=== PATIENT | female | born 1960 | race Caucasian/White ===

== ENCOUNTER → 2020-07-18 15:38 | Outpatient (BNVA) | payer OTHER, SELFPAY | PROVIDERS: PCP Internal Medicine; Visit Provider Student in an Organized Health Care Education/Training Program | DX: M17.0 Bilateral primary osteoarthritis of knee (principal) | CPT/HCPCS: 99202 ==

== ENCOUNTER 2020-08-17 09:52 | Emergency (ER) | payer OTHER, SELFPAY ==
[2020-08-17 10:04] VITALS: BP 122/92; PULSE 86; RESP 18; TEMP 36.5; O2SAT 98; BMI 31.8
--- NOTE | 2020-08-17 10:36 | ED_ITS ---
HPI - Dental/Oral General Chief complaint: Dental/Oral Stated complaint: dental pain Time Seen by Provider: 08/17/20 10:36 Source: patient Mode of arrival: ambulatory Limitations: no limitations History of Present Illness HPI Narrative: 59-year-old female with a past medical history of poor dentition/multiple dental caries/multiple dental fractures that are chronic, hypertension, asthma, vitamin-D deficiency and osteoarthritis presenting to the ED with complaints of right lower dental pain for the past 4 days worse today with mild lower facial swelling. Reports that she called her dentist to make an appointment she does not have an appointment till 2 weeks. Reports that the last time she went to the dentist she was prescribed some type of penicillin and was told that she needed a root canal. Patient denies any other symptoms complaints or concerns at this time. MD Complaint: tooth pain Onset (ago): day(s) (4 days worse today) Duration: worsening Severity: moderate Relieving factors: nothing Exacerbating factors: chewing Context: history of dental caries (/Dental fractures) and poor dental care Associated symptoms: ear pain Treatment prior to arrival: other (Patient has taken multiple [id number] medications with no symptomatic relief.) Related Data Home Medications Medication Instructions Recorded Confirmed albuterol sulfate 90 mcg/actuation 2 puff INHALATION Q6H PRN 07/18/20 aerosol inhaler amlodipine 10 mg tablet 10 mg PO DAILY 07/18/20 cholecalciferol (vitamin D3) 1,250 1,250 mcg PO QWEEK 07/18/20 mcg (50,000 unit) tablet clonazepam 1 mg tablet 1 mg PO BEDTIME 07/18/20 lisinopril 20 1 tab PO DAILY 07/18/20 mg-hydrochlorothiazide 12.5 mg tablet sertraline 100 mg tablet 100 mg PO DAILY 07/18/20 tramadol 50 mg tablet 50 mg PO Q8H PRN 07/18/20 ziprasidone HCl 20 mg capsule 20 mg PO BID 07/18/20 zolpidem 10 mg tablet 10 mg PO BEDTIME PRN 07/18/20 Previous Rx's Medication Instructions Recorded acetaminophen [Tylenol Extra 1,000 mg PO QID PRN #14 tab 08/17/20 Strength] oxycodone 5 mg PO BID PRN #10 tab 08/17/20 penicillin V potassium 500 mg PO Q12H 10 Days #20 tab 08/17/20 Allergies Allergy/AdvReac Type Severity Reaction Status Date / Time aspirin [Aspirin] Allergy Intermediate THORAT Verified 07/18/20 15:43 SWELLING, RASH ibuprofen [From Motrin] Allergy Intermediate THROAT Verified 07/18/20 15:43 SWELLING, RASH Review of Systems Review of Systems: Constitutional : No Fever, No Chills, No changes in PO intake, No difficulty speaking, no recent dental procedure, no heat or cold intolerance while eating, no recent face trauma, ENT/Mouth : + Dental pain, + Jaw pain right lower, + Right lower facial swelling, No Sore throat, No throat swelling, No swallowing difficulty, no change in voice, no drooling, no trismus, no bleeding, no lacerations, no tongue swelling, gum swelling, Eyes: No Eye Pain, No periorbital Swelling Cardiovascular : No Chest Pain, No SOB Respiratory : No Cough, No Sputum, No Wheezing, No Smoke Exposure, No Dyspnea Gastrointestinal : No Nausea, No Vomiting, No Diarrhea Genitourinary : No Dysuria Musculoskeletal : No Myalgias Skin : No rash, no facial swelling or redness, Neuro : No Weakness, No Numbness, No Headache Yes all other systems are reviewed and are negative [facility] Past Medical History Attestation statement: The following information was validated with the patient. Medical History Asthma HTN (hypertension) Osteoarthritis Vitamin D deficiency Surgical History H/O discectomy H/O hernia repair LAP-BAND surgery status Family History Family History Mother HTN (hypertension) CVD (cardiovascular disease) Father CVD (cardiovascular disease) Sister CVD (cardiovascular disease) Social History Social History Alcohol intake: never Smoking Status: Current every day smoker Tobacco Type: Cigarette Cigarettes Per Day: 10 Years Smoked: 20 Smoked in Last 30 Days: No Use of substances other than those prescribed or required for medical reasons: No Advance Directives: No Advance Directives Information Provided: No Physical Exam Vital Signs: Vital Signs: Last Vital Signs Temp 97.7 F 08/17/20 10:04 Pulse 86 08/17/20 10:04 Resp 18 08/17/20 10:04 BP 122/92 H 08/17/20 10:04 Pulse Ox 98 08/17/20 10:04 Body Mass Index 31.8 vital signs have been reviewed as normal and appeared to be correct. Blood pressure normal. Heart rate normal. Respiration rate normal. Temperature normal. Oxygen saturation normal. Appearance: Alert. Oriented X3. No acute distress. Head: Normal external exam. Normocephalic. Atraumatic. Eyes: PERRLA. EOMI. Conjunctiva and sclera normal. Eyelids normal. ENT: EAC normal. TM's Normal. Pharynx normal. Uvula midline. Moist mucous membranes. No trismus noted. No drooling noted. No muffled voice noted. Dentition: Patient with poor dentition throughout with multiple old fractured teeth with multiple dental caries. Gingival within normal limits. No fluctuance. Not consistent with peritonsillar abscess. Not consistent with dental abscess. Not consistent with for pharyngeal abscess. No salivary duct obstruction noted. Neck: Normal inspection. Neck supple. FROM. No adenopathy. Thyroid Normal. No meningeal signs. No neck mass noted. Trachea midline. CVS: Normal heart rate and rhythm. Heart sound normal. No murmurs noted. Pulses normal throughout. Respiratory: No respiratory distress. Painless inspiration. Breath sounds normal. No wheezes/rales/rhonchi noted. Chest nontender. No accessory muscle usage noted or decreased air movement noted. Back: Full range of motion noted. Skin: Skin warm and dry. Normal skin color. Normal skin turgor. No rashes/lesions/lacerations noted. Extremities:Extremities exhibit normal range of motion. Extremities nontender. Neuro: Oriented X 3. No motor deficit. No sensory deficit. Reflexes normal. Course Course Course Narrative: 59-year-old female with a past medical history of poor dentition with chronic dental caries/dental fractures who needs a root canal to multiple teeth presenting to the ED with complaints of worsening pain for the past 4 days with right lower facial swelling has an appointment with the dentist in 2 weeks. Denies any other symptoms complaints or concerns. On exam patient has multiple dental caries/poor dentition/old chronic fractures. No fluctuance. Not consistent with peritonsillar abscess/pharyngeal abscess/dental abscess. Patient does not have any trismus or drooling. Tolerating secretions well. Wi ll DC home with antibiotics and symptomatic treatment alone instructions to return if any new or worsening symptoms to follow up with her oral surgeon as scheduled. Patient understands agrees with this plan. [facility] - Dental/Oral Medical Records Attestation: I reviewed the patient's medical records. Discharge Plan Discharge Clinical Impression: Toothache, Dental caries Patient Disposition: Home, Self-Care Instructions: Toothache (ED) Prescriptions: New penicillin V potassium 500 mg tablet 500 mg PO Q12H 10 Days Qty: 20 RF: 0 oxycodone 5 mg tablet 5 mg PO BID PRN (Reason: pain) Qty: 10 RF: 0 acetaminophen [Tylenol Extra Strength] 500 mg tablet 1,000 mg PO QID PRN (Reason: fever or pain) Qty: 14 RF: 0 No Action cholecalciferol (vitamin D3) 1,250 mcg (50,000 unit) tablet 1,250 mcg PO QWEEK RF: 0 albuterol sulfate 90 mcg/actuation HFA aerosol inhaler 2 puff inhalation Q6H PRNRF: 0 tramadol 50 mg tablet 50 mg PO Q8H PRNRF: 0 lisinopril-hydrochlorothiazide [Zestoretic] 20-12.5 mg tablet 1 tab PO DAILY RF: 0 amlodipine 10 mg tablet 10 mg PO DAILY RF: 0 zolpidem 10 mg tablet 10 mg PO BEDTIME PRNRF: 0 ziprasidone HCl [Geodon] 20 mg capsule 20 mg PO BID RF: 0 sertraline 100 mg tablet 100 mg PO DAILY RF: 0 clonazepam 1 mg tablet 1 mg PO BEDTIME RF: 0 Referrals: Elba Luna MD [Primary Care Provider] - 2 days Print Language: Lithuanian
== END 2020-08-17 11:02 | disposition home or self-care (01) ==
PROVIDERS: Emergency Provider Emergency Medicine; PCP Internal Medicine
DX: K02.9 Dental caries, unspecified (principal); I10 Essential (primary) hypertension; R10.31 Right lower quadrant pain; F17.210 Nicotine dependence, cigarettes, uncomplicated; Z71.6 Tobacco abuse counseling; Z79.899 Other long term (current) drug therapy
CPT/HCPCS: 99283

== ENCOUNTER 2020-10-15 11:13 | Outpatient (REF) | payer OTHER, SELFPAY ==
--- NOTE | ~2020-10-15 | XR_ITS ---
EXAMINATION: BILATERAL KNEE X-RAY AND RIGHT ELBOW X-RAY CLINICAL INFORMATION: Pain COMPARISON: Previous x-rays March and April 2018 TECHNIQUE: 4 views of each knee and 3 views of the elbow FINDINGS: Bilateral knees: Bone alignment is normal. No fracture or dislocation is seen. The joint spaces are normal. There is no joint effusion. Right elbow: Bone alignment is normal. No fracture or dislocation is seen. There is a small osteophyte at the coronoid process. Joint spaces are otherwise normal. There is no joint effusion. XR/XR elbow RT min 3V IMPRESSION: Bilateral knees: Unremarkable exam Right elbow: Small coronoid process osteophyte otherwise unremarkable exam.
--- NOTE | ~2020-10-15 | XR_ITS ---
EXAMINATION: BILATERAL KNEE X-RAY AND RIGHT ELBOW X-RAY CLINICAL INFORMATION: Pain COMPARISON: Previous x-rays March and April 2018 TECHNIQUE: 4 views of each knee and 3 views of the elbow FINDINGS: Bilateral knees: Bone alignment is normal. No fracture or dislocation is seen. The joint spaces are normal. There is no joint effusion. Right elbow: Bone alignment is normal. No fracture or dislocation is seen. There is a small osteophyte at the coronoid process. Joint spaces are otherwise normal. There is no joint effusion. XR/XR knee LT 4V IMPRESSION: Bilateral knees: Unremarkable exam Right elbow: Small coronoid process osteophyte otherwise unremarkable exam.
--- NOTE | ~2020-10-15 | XR_ITS ---
EXAMINATION: BILATERAL KNEE X-RAY AND RIGHT ELBOW X-RAY CLINICAL INFORMATION: Pain COMPARISON: Previous x-rays March and April 2018 TECHNIQUE: 4 views of each knee and 3 views of the elbow FINDINGS: Bilateral knees: Bone alignment is normal. No fracture or dislocation is seen. The joint spaces are normal. There is no joint effusion. Right elbow: Bone alignment is normal. No fracture or dislocation is seen. There is a small osteophyte at the coronoid process. Joint spaces are otherwise normal. There is no joint effusion. XR/XR knee RT 4V IMPRESSION: Bilateral knees: Unremarkable exam Right elbow: Small coronoid process osteophyte otherwise unremarkable exam.
[2020-10-15 11:56] LABS: MANUAL DIFF FLAG NO
[2020-10-15 11:59] LABS: Basophils Absolute Auto 0.1 X10*3/uL (0.0-0.2); Basophils Percent Auto 0.8 % (0-2); Eosinophils Absolute Auto 0.3 X10*3/uL (0.0-0.4); Eosinophils Percent Auto 4.4 % (0-4); Hematocrit 39.6 % (37-47); Imm Gran Abs Auto 0.01 X10*3/uL (0.00-0.03); Imm Gran Pct Auto 0.2 % (0.0-0.4); Lymphocytes Absolute Auto 2.2 X10*3/uL (1.2-4.9); Lymphocytes Percent Auto 34.2 % (20-40); Mean Corpuscular HGB Conc 32.8 g/dl (31.0-35.0); Mean Corpuscular Hemoglobin 31.9 pg (27.0-33.0); Mean Corpuscular Volume 97.3 fL (80-98); Mean Platelet Volume 10.6 fL (9.4-12.3); Monocytes Absolute Auto 0.4 X10*3/uL (0.1-1.2); Monocytes Percent Auto 6.7 % (2-11); Neutrophils Absolute Auto 3.5 X10*3/uL (2.0-8.3); Neutrophils Percent Auto 53.7 % (45-73); Platelet Count 238 X10*3/uL (160-400); Red Blood Count 4.07 X10*6/uL (4.20-5.50); Red Cell Distribution Width 12.7 % (11.0-16.0); White Blood Count 6.5 X10*3/uL (4.8-10.8)
[2020-10-15 12:22] LABS: Alanine Aminotransferase 32 U/L (0-31); Albumin Level 4.6 g/dL (3.5-5.0); Alkaline Phosphatase 73 U/L (39-117); Anion Gap 12 (12-20); Aspartate Amino Transferase 23 U/L (5-31); Bilirubin Total 0.4 mg/dL (0.0-1.0); Blood Urea Nitrogen 15 mg/dL (9-16); C Reactive Protein 0.34 mg/dL (< or = 0.50); Calcium 9.6 mg/dL (8.4-10.2); Carbon Dioxide 28 mmol/L (22-29); Chloride 103 mmol/L (96-108); Estimated Glomerular Filt Rate > 60; Glucose Random 87 mg/dL (60-115); Rheumatoid Factor < 15.0 IU/mL (<15.0); Sodium 139 mmol/L (135-145); Total Protein 7.3 g/dL (6.5-8.0)
[2020-10-15 12:54] LABS: Erythrocyte Sedimentation Rate 18 MM/HR (0-20)
[2020-10-16 05:16] LABS: Lyme Abs Screen <0.90 index
[2020-10-16 17:26] LABS: Cyclic Citrullinated Peptide <16 UNITS
== END 2020-10-15 11:14 | disposition home or self-care (01) ==
LOC: HO.LAB 11:13
PROVIDERS: Absent Provider Student in an Organized Health Care Education/Training Program; PCP Internal Medicine; Visit Provider Nurse Practitioner Family
DX: M25.521 Pain in right elbow (principal); M17.0 Bilateral primary osteoarthritis of knee
CPT/HCPCS: 36415; 73080; 73564; 80053; 85025; 85652; 86140; 86200; 86431; 86617; 86618

== ENCOUNTER → 2020-11-27 10:05 | Outpatient (BNVA) | payer OTHER, SELFPAY | PROVIDERS: PCP Internal Medicine; Visit Provider Student in an Organized Health Care Education/Training Program | DX: M17.0 Bilateral primary osteoarthritis of knee (principal); M19.021 Primary osteoarthritis, right elbow | CPT/HCPCS: 99212 ==

== ENCOUNTER → 2020-12-11 11:14 | Outpatient (BNVA) | payer OTHER, SELFPAY | PROVIDERS: Visit Provider Physician Assistant | DX: M77.11 Lateral epicondylitis, right elbow (principal); Z88.6 Allergy status to analgesic agent | CPT/HCPCS: 20551; 99202; J1040 ==

== ENCOUNTER 2021-01-04 16:26 | Emergency (ER) | payer OTHER, SELFPAY ==
--- NOTE | ~2021-01-04 | XR_ITS ---
EXAMINATION: XR LUMBOSACRAL SPINE CLINICAL INFORMATION: Pain following fall. Back surgery. COMPARISON: Lumbar spine radiographs dated 08/28/2012. TECHNIQUE: Three views of the lumbosacral spine. FINDINGS: Intervertebral disc hardware redemonstrated at L4-L5 without evidence of hardware complication. No acute fracture or subluxation. No loss of vertebral body height. Mild multilevel loss of intervertebral disc height with tiny endplate osteophytes, increased when compared to the prior examination. No osseous erosion. Surgical clips and surgical coils. XR/XR lumbar spine 2-3V IMPRESSION: Intervertebral disc hardware at L4-L5 without evidence of hardware application. No acute osseous abnormality. Mild multilevel degenerative disc disease, new/increased when compared to the prior examination.
[2021-01-04 16:30] VITALS: BP 146/94; PULSE 78; RESP 18; TEMP 37; O2SAT 100; BMI 30.4
--- NOTE | 2021-01-04 19:36 | ED.BACK ---
HPI - Back Pain/Injury General Chief Complaint: Back Pain/Injury Stated Complaint: Back pain Time Seen by Provider: 01/04/21 19:18 Source: patient Mode of arrival: ambulatory Limitations: no limitations History of Present Illness HPI Narrative: 60 y/o female with history of chronic low back pain s/p lumbar surgery 10 years ago, on chronic Tramadol who presnts to the ER with acute on chronic pain after she fell down 4 steps on her buttocks 1 week ago. She reports the pain is in her lower back and radiates down her left leg. It is making it difficult to walk and sleep. No incontinence or saddle paresthesias. She has been taking her prescribed Tramadol, but she reports because she is on this chronically is does not do anything for when she has acute worsening of pain. She is going to [place] tomorrow and is worried she wont be able to go because her pain is not well controlled. MD elicited complaint: back pain, back injury and fall Pertinent past history: prior back pain and recent trauma Onset (ago): day(s) (7) Timing: constant and progressively worsening Severity: severe Similar Symptoms Previously: Yes Quality: aching, spasming and throbbing Location: lumbar spine Radiation: left upper leg Exacerbating factors: movement, walking and coughing/sneezing Relieving factors: immobilization Context: fall Associated symptoms: difficulty walking Treatments prior to arrival: cold therapy, acetaminophen, other medications and prescription analgesics Work related injury: No Related Data Home Medications Medication Instructions Recorded Confirmed albuterol sulfate 90 mcg/actuation 2 puff INHALATION Q6H PRN 07/18/20 aerosol inhaler amlodipine 10 mg tablet 10 mg PO DAILY 07/18/20 cholecalciferol (vitamin D3) 1,250 1,250 mcg PO QWEEK 07/18/20 mcg (50,000 unit) tablet clonazepam 1 mg tablet 1 mg PO BEDTIME 07/18/20 lisinopril 20 1 tab PO DAILY 07/18/20 mg-hydrochlorothiazide 12.5 mg tablet (Zestoretic) sertraline 100 mg tablet 100 mg PO DAILY 07/18/20 ziprasidone HCl 20 mg capsule 20 mg PO BID 07/18/20 (Geodon) zolpidem 10 mg tablet 10 mg PO BEDTIME PRN 07/18/20 Previous Rx's Medication Instructions Recorded acetaminophen 500 mg tablet 1,000 mg PO QID PRN #14 tab 08/17/20 (Tylenol Extra Strength) tramadol 50 mg tablet 50 mg PO BID PRN #60 tab 11/27/20 cyclobenzaprine 10 mg tablet 10 mg PO TID PRN #7 tab 01/04/21 lidocaine 5 % topical patch 1 patch TOPICAL DAILY #15 ea 01/04/21 (Lidoderm) oxycodone-acetaminophen 5 mg-325 1 tab PO Q6H PRN #7 tab 01/04/21 mg tablet (Percocet) prednisone 20 mg tablet 40 mg PO DAILY #10 tab 01/04/21 Allergies Allergy/AdvReac Type Severity Reaction Status Date / Time aspirin [Aspirin] Allergy Severe THORAT Verified 01/04/21 16:35 SWELLING, RASH ibuprofen [From Motrin] Allergy Severe THROAT Verified 01/04/21 16:35 SWELLING, RASH naproxen Allergy Severe Anaphylaxis Verified 01/04/21 16:35 PMFSH Past Medical History Medical History Asthma HTN (hypertension) Osteoarthritis Vitamin D deficiency Surgical History H/O discectomy H/O hernia repair LAP-BAND surgery status Family History Family History Mother HTN (hypertension) CVD (cardiovascular disease) Father CVD (cardiovascular disease) Sister CVD (cardiovascular disease) Social History Social History (Updated 12/11/20 @ 11:20 by Juan Cerda) Alcohol intake: never Cigarettes Per Day: 10 Years Smoked: 20 Advance Directives: No Advance Directives Information Provided: No Patient : No Current occupational status: disabled Current occupation: rt handed Physical Exam Vital Signs: Vital Signs: Last Vital Signs Temp 98.6 F 01/04/21 16:30 Pulse 78 01/04/21 16:30 Resp 18 01/04/21 16:30 BP 146/94 H 01/04/21 16:30 Pulse Ox 100 01/04/21 16:30 Body Mass Index 30.4 Appearance: Alert. Oriented X3. No acute distress. Eyes: Pupils equal, round and reactive to light. Neck: Normal inspection. CVS: Normal heart rate and rhythm. Pulses normal. Respiratory: No respiratory distress. Abdomen: Soft and nontender. +BS x4 Back: moderate tenderness of the lumbar spine and associated soft tissues. + SI joint tenderness on the left. Skin: Skin warm and dry. Normal skin color. Normal skin turgor. No rashes. Extremities: No lower extremity edema. Neuro: Oriented X 3. No motor deficit. No sensory deficit. Ambulates with slow but steady gait. Normal DTRs Course Course Course Narrative: 60 y/o female presenting with acute on chronic lower back pain s/p fall down stairs. XR is negative for acute fracture. We discussed how she needs to follow up with her PCP for opiate needs given she is chronically prescribed them. We agreed to give a trial of a few doses of Percocet for her acute pain as she will not be able to see her PCP tomorrow before she travels. She expressed understanding of outpatient follow up. She has no red flag symptoms of LBP. She is stable for discharge home. Critical Care Time Critical Care Time Critical Care Time: No Discharge Plan Discharge Clinical Impression: Lumbar radiculopathy Patient Disposition: Home, Self-Care Instructions: Low Back Strain (ED), Acute Low Back Pain (ED), Lower Back Exercises (ED) Additional Instructions: No bending, lifting or twisting. Use ice several times per day for 20 minutes at a time for the next 48 hours and then change to heat. Take medications as prescribed to help with pain and discomfort. Follow up with your Primary Care Doctor this week. If your pain worsens, if you develop new numbness, tingling, weakness, loss of function or incontinence call 911 or come back to the ER right away for evaluation. Prescriptions: New oxycodone-acetaminophen [Percocet] 5-325 mg tablet 1 tab PO Q6H PRN (Reason: pain) Qty: 7 RF: 0 prednisone 20 mg tablet 40 mg PO DAILY Qty: 10 RF: 0 cyclobenzaprine 10 mg tablet 10 mg PO TID PRN (Reason: muscle spasm) Qty: 7 RF: 0 lidocaine [Lidoderm] 5 % adhesive patch,medicated 1 patch topical DAILY Qty: 15 RF: 0 No Action acetaminophen [Tylenol Extra Strength] 500 mg tablet 1,000 mg PO QID PRN (Reason: fever or pain) Qty: 14 RF: 0 cholecalciferol (vitamin D3) 1,250 mcg (50,000 unit) tablet 1,250 mcg PO QWEEK RF: 0 albuterol sulfate 90 mcg/actuation HFA aerosol inhaler 2 puff inhalation Q6H PRNRF: 0 lisinopril-hydrochlorothiazide [Zestoretic] 20-12.5 mg tablet 1 tab PO DAILY RF: 0 amlodipine 10 mg tablet 10 mg PO DAILY RF: 0 zolpidem 10 mg tablet 10 mg PO BEDTIME PRNRF: 0 ziprasidone HCl [Geodon] 20 mg capsule 20 mg PO BID RF: 0 sertraline 100 mg tablet 100 mg PO DAILY RF: 0 clonazepam 1 mg tablet 1 mg PO BEDTIME RF: 0 tramadol 50 mg tablet 50 mg PO BID PRN (Reason: pain) Qty: 60 RF: 3 Referrals: Elba Luna MD [Primary Care Provider] - 2 days
== END 2021-01-04 20:21 | disposition home or self-care (01) ==
PROVIDERS: Emergency Provider Emergency Medicine; PCP Internal Medicine
DX: M54.16 Radiculopathy, lumbar region (principal); F17.210 Nicotine dependence, cigarettes, uncomplicated; Z71.6 Tobacco abuse counseling; Z79.899 Other long term (current) drug therapy
CPT/HCPCS: 72100; 99283

== ENCOUNTER 2021-03-14 11:26 | Emergency (ER) | payer OTHER, SELFPAY ==
[2021-03-14 11:39] VITALS: BP 128/52; PULSE 76; RESP 18; TEMP 36.8; O2SAT 98; BMI 30.4
--- NOTE | 2021-03-14 12:02 | ED_ITS ---
HPI - Extremity Problem General Chief complaint: Extremity Injury, Upper Stated complaint: elbow pain Time Seen by Provider: 03/14/21 12:01 Source: patient Mode of arrival: ambulatory Limitations: no limitations History of Present Illness HPI Narrative: 60 y/o female with history of arthritis, history of tendinitis in her right elbow, history of hypertension asthma, history of osteoarthritis of both of her knees who presents to the ER with 1 week of worsening right elbow pain. She denies any trauma or injury. She is right-hand dominant. She states back and september she had x-rays done that did not show any significant abnormalities and she was seen by a process design chemical engineer who performed joint injections for tendinitis. She had significant improvement with this treatment and has not had recurrence of pain until the last 1 week. She has been taking Tylenol and using BenGay without any improvement. Pain is worse with palpation and range of motion of the elbow. She is able to fully extend and flex the elbow. She has no redness of the elbow, no fever or chills. MD Complaint: joint paint Onset (ago): day(s) (1) Pain Consistency: constant Location: right and elbow Severity scale (1-10): 8 Quality: aching Radiation: none Relieving factors: medication Exacerbating factors: range of motion and palpation Associated symptoms: denies other symptoms Related Data Home Medications Medication Instructions Recorded Confirmed albuterol sulfate 90 mcg/actuation 2 puff INHALATION Q6H PRN 07/18/20 aerosol inhaler amlodipine 10 mg tablet 10 mg PO DAILY 07/18/20 cholecalciferol (vitamin D3) 1,250 1,250 mcg PO QWEEK 07/18/20 mcg (50,000 unit) tablet clonazepam 1 mg tablet 1 mg PO BEDTIME 07/18/20 lisinopril 20 1 tab PO DAILY 07/18/20 mg-hydrochlorothiazide 12.5 mg tablet (Zestoretic) sertraline 100 mg tablet 100 mg PO DAILY 07/18/20 ziprasidone HCl 20 mg capsule 20 mg PO BID 07/18/20 (Geodon) zolpidem 10 mg tablet 10 mg PO BEDTIME PRN 07/18/20 Previous Rx's Medication Instructions Recorded acetaminophen 500 mg tablet 1,000 mg PO QID PRN #14 tab 08/17/20 (Tylenol Extra Strength) tramadol 50 mg tablet 50 mg PO BID PRN #60 tab 11/27/20 cyclobenzaprine 10 mg tablet 10 mg PO TID PRN #7 tab 01/04/21 lidocaine 5 % topical patch 1 patch TOPICAL DAILY #15 ea 01/04/21 (Lidoderm) oxycodone-acetaminophen 5 mg-325 1 tab PO Q6H PRN #7 tab 01/04/21 mg tablet (Percocet) prednisone 20 mg tablet 40 mg PO DAILY #10 tab 01/04/21 oxycodone-acetaminophen 5 mg-325 1 tab PO Q8H PRN #6 tab 03/14/21 mg tablet (Percocet) prednisone 20 mg tablet 40 mg PO DAILY #10 tab 03/14/21 Allergies Allergy/AdvReac Type Severity Reaction Status Date / Time aspirin [Aspirin] Allergy Severe THORAT Verified 03/14/21 11:39 SWELLING, RASH ibuprofen [From Motrin] Allergy Severe THROAT Verified 03/14/21 11:39 SWELLING, RASH naproxen Allergy Severe Anaphylaxis Verified 03/14/21 11:39 Review of Systems Review of Systems: Constitutional: No Fever, No Chills CV: no chest pain Musculoskeletal: + joint pain, No Myalgias Skin: No Skin Lesions, No rash Neuro: No Weakness, No Numbness Heme/Lymph: No Bruising, No Lymphadenopathy PMFSH Past Medical History Medical History (Updated 03/14/21 @ 12:18 by PAKO Dean) Arthritis Asthma HTN (hypertension) Osteoarthritis Vitamin D deficiency Surgical History H/O discectomy H/O hernia repair LAP-BAND surgery status Family History Family History Mother HTN (hypertension) CVD (cardiovascular disease) Father CVD (cardiovascular disease) Sister CVD (cardiovascular disease) Social History Social History (Updated 12/11/20 @ 11:20 by Juan Cerda) Alcohol intake: never Cigarettes Per Day: 10 Years Smoked: 20 Advance Directives: No Advance Directives Information Provided: No Patient : No Current occupational status: disabled Current occupation: rt handed Physical Exam Vital Signs: Vital Signs: Last Vital Signs Temp 98.2 F 03/14/21 11:39 Pulse 76 10/23/21 11:39 Resp 18 03/14/21 11:39 BP 128/52 L 03/14/21 11:39 Pulse Ox 98 03/14/21 11:39 Body Mass Index 30.4 Appearance: Alert. Oriented X3. No acute distress. HEENT: normal inspection CVS: Normal heart rate and rhythm. Pulses normal. Respiratory: No respiratory distress. Skin: Skin warm and dry. Normal skin color. Normal skin turgor. No rashes. Extremities: Right arm normal to inspection, tenderness of the lateral epicondyle of the right elbow, normal passive and active range of motion, pain with flexion. No erythema of the elbow or warmth. Neurovascularly intact distally. Neuro: Oriented X 3. No motor deficit. No sensory deficit. Course Course Course Narrative: 60-year-old female presenting with recurrent right elbow pain, nontraumatic in nature. She has a history of tendinitis requiring joint injections that responded very well. This appears to be a similar clinical presentation. She has tenderness to the lateral epicondyle of her right elbow, no signs of infection. No need for repeat x-rays at this time given no trauma. She has an appointment with her process design chemical engineer next and is hopeful to get joint injections then. Will treat her conservatively for now with a short course of prednisone given her NSAID allergy and a few Percocet for severe pain. Will place in a sling for comfort for 2 days and then continue [id number] exercises. Supportive care discussed with the patient she is stable for [facility]. Discharge Plan Discharge Clinical Impression: Lateral epicondylitis, right elbow Patient Disposition: Home, Self-Care Instructions: Tennis Elbow (ED) Additional Instructions: Use the sling for rest of your elbow for the next 2 days. Taking medications as prescribed. Do not drive after taking the Percocet. It can make you drowsy. Continue to use ice several times a day. Continue to take Tylenol up to 1000 mg every 6 hours. Do not exceed 4000 mg in 1 day. Follow-up with your doctor as scheduled next for evaluation for possible joint injection. If you develop new or worsening symptoms call 911 or come back to the ER for further evaluation. Prescriptions: New prednisone 20 mg tablet 40 mg PO DAILY Qty: 10 RF: 0 oxycodone-acetaminophen [Percocet] 5-325 mg tablet 1 tab PO Q8H PRN (Reason: pain) Qty: 6 RF: 0 No Action acetaminophen [Tylenol Extra Strength] 500 mg tablet 1,000 mg PO QID PRN (Reason: fever or pain) Qty: 14 RF: 0 oxycodone-acetaminophen [Percocet] 5-325 mg tablet 1 tab PO Q6H PRN (Reason: pain) Qty: 7 RF: 0 prednisone 20 mg tablet 40 mg PO DAILY Qty: 10 RF: 0 cyclobenzaprine 10 mg tablet 10 mg PO TID PRN (Reason: muscle spasm) Qty: 7 RF: 0 lidocaine [Lidoderm] 5 % adhesive patch,medicated 1 patch topical DAILY Qty: 15 RF: 0 cholecalciferol (vitamin D3) 1,250 mcg (50,000 unit) tablet 1,250 mcg PO QWEEK RF: 0 albuterol sulfate 90 mcg/actuation HFA aerosol inhaler 2 puff inhalation Q6H PRNRF: 0 lisinopril-hydrochlorothiazide [Zestoretic] 20-12.5 mg tablet 1 tab PO DAILY RF: 0 amlodipine 10 mg tablet 10 mg PO DAILY RF: 0 zolpidem 10 mg tablet 10 mg PO BEDTIME PRNRF: 0 ziprasidone HCl [Geodon] 20 mg capsule 20 mg PO BID RF: 0 sertraline 100 mg tablet 100 mg PO DAILY RF: 0 clonazepam 1 mg tablet 1 mg PO BEDTIME RF: 0 tramadol 50 mg tablet 50 mg PO BID PRN (Reason: pain) Qty: 60 RF: 3
== END 2021-03-14 13:00 | disposition home or self-care (01) ==
PROVIDERS: Emergency Provider Emergency Medicine; PCP Internal Medicine
DX: M77.11 Lateral epicondylitis, right elbow (principal); M25.521 Pain in right elbow; F17.210 Nicotine dependence, cigarettes, uncomplicated; Z71.6 Tobacco abuse counseling; Z79.899 Other long term (current) drug therapy
CPT/HCPCS: 99283

== ENCOUNTER 2021-03-20 13:27 | Outpatient (REF) | payer OTHER, SELFPAY ==
--- NOTE | ~2021-03-20 | MM_ITS ---
EXAMINATION: MM DIAGNOSTIC DIGITAL BREAST TOMOSYNTHESIS, BILATERAL TARGETED RIGHT BREAST ULTRASOUND CLINICAL INFORMATION: Right breast pain for one month. The lifetime risk of breast cancer based on the Tyrer-Cuzick Model is 7%. COMPARISON: Mammography: 07/29/2017 and 07/11/2008. TECHNIQUE: Digital breast tomosynthesis is performed in both the craniocaudal and mediolateral oblique views along with computer-aided detection (CAD). Synthesized 2D images are generated from the tomosynthesis. FINDINGS: The breasts are almost entirely fatty (ACR BI-RADS breast composition Category a). There are no significant masses, abnormal calcifications, or other abnormalities. Targeted right breast ultrasound did not demonstrate any abnormal cystic or solid masses. No region of abnormal distal sound shadowing. Results are discussed with the patient at time of visit. MM/MM tomosynthesis diagnostic BI IMPRESSION: No mammographic or ultrasound evidence of malignancy. ASSESSMENT: BI-RADS 1: Negative. RECOMMENDATION: Routine annual mammography screening due in 12 months. Clinical follow-up. This patient's information was entered into a reminder system with a target due date for their next mammogram.
--- NOTE | ~2021-03-20 | US_ITS ---
EXAMINATION: US DIAGNOSTIC ULTRASOUND BREAST, RIGHT CLINICAL INFORMATION: Right breast pain. COMPARISON: Mammography of same day. TECHNIQUE: Ultrasound of the breast is performed with real-time kendall scale imaging and color Doppler. FINDINGS: Targeted right breast ultrasound did not demonstrate any abnormal cystic or solid masses. No region of abnormal distal sound shadowing. Results are discussed with the patient at time of visit. US/US breast RT limited IMPRESSION: No mammographic or ultrasound evidence of malignancy. ASSESSMENT: BI-RADS 1: Negative. RECOMMENDATION: Routine annual mammography screening due in 12 months. Clinical follow-up.
== END 2021-03-20 13:28 | disposition home or self-care (01) ==
LOC: HO.MAMMO 13:27
PROVIDERS: Visit Provider Internal Medicine
DX: N64.4 Mastodynia (principal)
CPT/HCPCS: 76642; 77062; 77066

== ENCOUNTER 2021-08-01 09:19 | Emergency (ER) | payer OTHER, SELFPAY ==
--- NOTE | ~2021-08-01 | XR_ITS ---
EXAMINATION: XR ELBOW, RIGHT CLINICAL INFORMATION: Acute on chronic pain. COMPARISON: Right elbow 10/15/2020. TECHNIQUE: AP, lateral, and oblique views of the right elbow. FINDINGS: Radial head appears intact. No fractures or malalignments are visualized. Minimal osteophyte of the coronoid process is again noted. No joint effusion visualized. Normal bone mineralization. XR/XR elbow RT min 3V IMPRESSION: *No acute abnormalities. 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
[2021-08-01 09:44] VITALS: BP 132/79; PULSE 82; RESP 16; TEMP 36.5; O2SAT 98; BMI 28.3
--- NOTE | 2021-08-01 10:08 | ED.EXTPRO ---
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 Reports recently had cortisone injections to right elbow however symptoms exacerbated after cleaning/excessive movement. Reports pain worse with movement. Reports associated tingling. Denies numbness, fever, chills, injury/trauma or fall MD Complaint: extremity pain Onset (ago): month(s) Related Data Home Medications Medication Instructions Recorded Confirmed albuterol sulfate 90 mcg/actuation 2 puff INHALATION Q6H PRN 07/18/20 aerosol inhaler amlodipine 10 mg tablet 10 mg PO DAILY 07/18/20 cholecalciferol (vitamin D3) 1,250 1,250 mcg PO QWEEK 07/18/20 mcg (50,000 unit) tablet clonazepam 1 mg tablet 1 mg PO BEDTIME 07/18/20 lisinopril 20 1 tab PO DAILY 07/18/20 mg-hydrochlorothiazide 12.5 mg tablet (Zestoretic) sertraline 100 mg tablet 100 mg PO DAILY 07/18/20 ziprasidone HCl 20 mg capsule 20 mg PO BID 07/18/20 (Geodon) zolpidem 10 mg tablet 10 mg PO BEDTIME PRN 07/18/20 Previous Rx's Medication Instructions Recorded acetaminophen 500 mg tablet 1,000 mg PO QID PRN #14 tab 08/17/20 (Tylenol Extra Strength) tramadol 50 mg tablet 50 mg PO BID PRN #60 tab 11/27/20 cyclobenzaprine 10 mg tablet 10 mg PO TID PRN #7 tab 01/04/21 lidocaine 5 % topical patch 1 patch TOPICAL DAILY #15 ea 01/04/21 (Lidoderm) oxycodone-acetaminophen 5 mg-325 1 tab PO Q6H PRN #7 tab 01/04/21 mg tablet (Percocet) prednisone 20 mg tablet 40 mg PO DAILY #10 tab 01/04/21 oxycodone-acetaminophen 5 mg-325 1 tab PO Q8H PRN #6 tab 10/23/21 mg tablet (Percocet) prednisone 20 mg tablet 40 mg PO DAILY #10 tab 03/14/21 acetaminophen 500 mg tablet 500 mg PO Q6H PRN #20 tab 08/01/21 (Tylenol Extra Strength) lidocaine 5 % topical patch 1 patch TOPICAL DAILY PRN #30 ea 08/01/21 (Lidoderm) MDD remove after 12 hours Allergies Allergy/AdvReac Type Severity Reaction Status Date / Time aspirin [Aspirin] Allergy Severe THORAT Verified 03/14/21 11:39 SWELLING, RASH ibuprofen [From Motrin] Allergy Severe THROAT Verified 03/14/21 11:39 SWELLING, RASH naproxen Allergy Severe Anaphylaxis Verified 03/14/21 11:39 Review of Systems Review of Systems: Constitutional: No Fever, No Chills ENT/Mouth: No Ear Pain, No Nasal Congestion, No Sinus Pain, No Hoarseness, No sore throat, No Rhinorrhea Cardiovascular: No Chest Pain, No SOB Respiratory: No Cough, No Sputum Gastrointestinal: No Nausea, No Vomiting, No Abdominal pain Genitourinary:, No Dysuria, No Urinary Frequency, No Hematuria, No Urinary Incontinence, No Flank Pain Musculoskeletal: + joint pain, No Myalgias, No Joint Swelling Skin: No Skin Lesions, No rash Neuro: No Weakness, No Numbness, + Paresthesias Yes all other systems are reviewed and are negative [facility] Past Medical History Attestation statement: The following information was validated with the patient. Medical History Arthritis Asthma HTN (hypertension) Osteoarthritis Vitamin D deficiency Surgical History H/O discectomy H/O hernia repair LAP-BAND surgery status Family History Family History Mother HTN (hypertension) CVD (cardiovascular disease) Father CVD (cardiovascular disease) Sister CVD (cardiovascular disease) Social History Social History Alcohol intake: never Cigarettes Per Day: 10 Years Smoked: 20 Advance Directives: No Advance Directives Information Provided: No Patient : No Current occupational status: disabled Current occupation: rt handed Physical Exam Vital Signs: Vital Signs: Last Vital Signs Temp 97.7 F 08/01/21 09:44 Pulse 82 08/01/21 09:44 Resp 16 08/01/21 09:44 BP 132/79 08/01/21 09:44 Pulse Ox 98 08/01/21 09:44 BMI result Body Mass Index 28.3 Const: General: cooperative, healthy appearing and no acute distress Nutritional Appearance: not cachectic Orientation/consciousness: patient oriented x3 Limitations: no limitations HENMT: Head: Yes normal to inspection Ears: hearing grossly normal bilaterally General nose exam: Normal external nose present Face and sinus: Yes normal facial exam Eyes: General: appearance normal, both eyes and all related structures EOM: EOMs intact bilaterally Neck: Neck: Yes normal visual inspection and Yes no meningeal signs Resp: Effort & Inspection: normal respiratory effort and no respiratory distress Cardio: Rate: regular rate Peripheral pulses: radial pulses present : General: Yes no CVA tenderness Back/Spine/Pelvis: Back: no CVA tenderness Skin: Rashes: no rashes Wounds: no wounds Neuro: General: patient oriented x3 and no meningeal signs Gait exam (Neuro): Normal gait present Extrem: Other: RUE without noted deformity. Medial epicondyle with tenderness to palpation. Pain worsened with ROM. Full range of motion intact. Neurovascular intact distally. Sensation intact to light touch. No erythema, warmth, crepitus General: Yes normal to inspection Course Course Course Narrative: XR elbow RT min 3V IMPRESSION: *No acute abnormalities. 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 On exam vital signs stable, NAD/nontoxic appearing, physical exam as above. Concern for tendinitis. Patient requesting x-rays today. Low concern for fracture/dislocation. Exam not consistent with septic joint/arthritis. Plan: X-rays Medical Records Attestation: I reviewed the patient's medical records. Lab Data Attestation: I reviewed the patient's lab results. Discharge Plan Discharge Clinical Impression: Elbow tendinitis Patient Disposition: Home, Self-Care Instructions: Tendinitis (ED) Additional Instructions: Your x-rays are unchanged from prior imaging. Take Tylenol at home for pain, alternate ice and heat. Rest. Lidocaine patches or numbing patches, apply to painful area. Please follow-up with her orthopedist Prescriptions: New acetaminophen [Tylenol Extra Strength] 500 mg tablet 500 mg PO Q6H PRN (Reason: pain or fever) Qty: 20 0RF lidocaine [Lidoderm] 5 % adhesive patch,medicated 1 patch topical DAILY MDD remove after 12 hours PRN (Reason: pain) Qty: 30 0RF Rx Instructions: leave on most painful area for up to 12 hrs No Action acetaminophen [Tylenol Extra Strength] 500 mg tablet 1,000 mg PO QID PRN (Reason: fever or pain) Qty: 14 0RF oxycodone-acetaminophen [Percocet] 5-325 mg tablet 1 tab PO Q6H PRN (Reason: pain) Qty: 7 0RF prednisone 20 mg tablet 40 mg PO DAILY Qty: 10 0RF cyclobenzaprine 10 mg tablet 10 mg PO TID PRN (Reason: muscle spasm) Qty: 7 0RF lidocaine [Lidoderm] 5 % adhesive patch,medicated 1 patch topical DAILY Qty: 15 0RF Rx Instructions: leave on most painful area for up to 12 hrs prednisone 20 mg tablet 40 mg PO DAILY Qty: 10 0RF oxycodone-acetaminophen [Percocet] 5-325 mg tablet 1 tab PO Q8H PRN (Reason: pain) Qty: 6 0RF cholecalciferol (vitamin D3) 1,250 mcg (50,000 unit) tablet 1,250 mcg PO QWEEK 0RF albuterol sulfate 90 mcg/actuation HFA aerosol inhaler 2 puff inhalation Q6H PRN0RF lisinopril-hydrochlorothiazide [Zestoretic] 20-12.5 mg tablet 1 tab PO DAILY 0RF amlodipine 10 mg tablet 10 mg PO DAILY 0RF zolpidem 10 mg tablet 10 mg PO BEDTIME PRN0RF ziprasidone HCl [Geodon] 20 mg capsule 20 mg PO BID 0RF Label Comments: 2 caps am,3 caps at bedtime Rx Instructions: give with food (meal/snack) sertraline 100 mg tablet 100 mg PO DAILY 0RF clonazepam 1 mg tablet 1 mg PO BEDTIME 0RF Rx Instructions: administer 30 minutes before bedtime tramadol 50 mg tablet 50 mg PO BID PRN (Reason: pain) Qty: 60 3RF Referrals: Vero Shen PA-C [[facility]] - 5 days
== END 2021-08-01 11:45 | disposition home or self-care (01) ==
PROVIDERS: Emergency Provider Emergency Medicine; PCP Internal Medicine
DX: M77.01 Medial epicondylitis, right elbow (principal); M25.721 Osteophyte, right elbow; M25.521 Pain in right elbow; I10 Essential (primary) hypertension
CPT/HCPCS: 73080; 99283

== ENCOUNTER 2021-11-08 09:57 | Emergency (ER) | payer OTHER, SELFPAY ==
[2021-11-08 10:12] VITALS: BP 143/91; PULSE 109; RESP 20; TEMP 36.4; O2SAT 95; BMI 28.0
--- NOTE | 2021-11-08 10:33 | ED_ITS ---
HPI - Asthma General Chief Complaint: Asthma Stated Complaint: asthma/diff breathing/left side pain Time Seen by Provider: 11/08/21 10:33 Source: patient Mode of arrival: ambulatory Limitations: no limitations History of Present Illness HPI Narrative: 60-year-old female who presents emergency department for evaluation of cough, shortness of breath and chest pain x2 weeks. The patient states that she has a cough which is productive of thick green sputum. She states the cough is gotten progressively worse. She also complains of shortness of breath. She does have asthma and she has had to use her inhaler more often than usual. She has also had to use her albuterol nebulizer as well. She states she does get relief with her nebulizer but gets short of breath shortly after using it. She is complaining of bilateral lower chest pain which is worse with breathing and with coughing, the pain is intermittent, sharp and 8/10 at its worst. The patient denied fever, chills, sore throat. She states that she has had rhinorrhea shortness of breath and dyspnea on exertion. Patient states that she has had similar presentations in the past when she gets bronchitis and this caused her asthma to flare up. MD complaint: asthma attack Onset (ago): week(s) (2) Severity: severe Context: recent URI Associated symptoms: productive cough and chest pain Treatments Prior to Arrival: inhaled bronchodilator Related Data Current Asthma Therapy: inhaled bronchodilator Home Medications Medication Instructions Recorded Confirmed albuterol sulfate 90 mcg/actuation 2 puff inhalation Q6H PRN 07/18/20 aerosol inhaler amlodipine 10 mg tablet 10 mg PO DAILY 07/18/20 cholecalciferol (vitamin D3) 1,250 1,250 mcg PO QWEEK 07/18/20 mcg (50,000 unit) tablet clonazepam 1 mg tablet 1 mg PO BEDTIME 07/18/20 lisinopril 20 1 tab PO DAILY 07/18/20 mg-hydrochlorothiazide 12.5 mg tablet (Zestoretic) sertraline 100 mg tablet 100 mg PO DAILY 07/18/20 ziprasidone HCl 20 mg capsule 20 mg PO BID 07/18/20 (Geodon) zolpidem 10 mg tablet 10 mg PO BEDTIME PRN 07/18/20 Previous Rx's Medication Instructions Recorded acetaminophen 500 mg tablet 1,000 mg PO QID PRN fever or pain 08/17/20 (Tylenol Extra Strength) #14 tabs tramadol 50 mg tablet 50 mg PO BID PRN pain #60 tabs 11/27/20 cyclobenzaprine 10 mg tablet 10 mg PO TID PRN muscle spasm #7 01/04/21 tabs lidocaine 5 % topical patch 1 patch topical DAILY #15 ea 01/04/21 (Lidoderm) prednisone 20 mg tablet 40 mg PO DAILY #10 tabs 01/04/21 oxycodone-acetaminophen 5 mg-325 1 tab PO Q8H PRN pain #6 tabs 03/14/21 mg tablet (Percocet) prednisone 20 mg tablet 40 mg PO DAILY #10 tabs 03/14/21 acetaminophen 500 mg tablet 500 mg PO Q6H PRN pain or fever 08/01/21 (Tylenol Extra Strength) #20 tabs lidocaine 5 % topical patch 1 patch topical DAILY PRN pain #30 08/01/21 (Lidoderm) ea azithromycin 250 mg tablet See Rx Instructions PO .COMPLEX #6 11/08/21 (Zithromax Z-Grant) tabs prednisone 20 mg tablet 60 mg PO DAILY 5 days #15 tabs 11/08/21 Allergies Allergy/AdvReac Type Severity Reaction Status Date / Time aspirin [Aspirin] Allergy Severe THORAT Verified 11/08/21 10:14 SWELLING, RASH ibuprofen [From Motrin] Allergy Severe THROAT Verified 03/14/21 11:39 SWELLING, RASH naproxen Allergy Severe Anaphylaxis Verified 03/14/21 11:39 Review of Systems Review of Systems: Yes all other systems are reviewed and are negative [facility] Past Medical History [facility] Narrative: Past medical history: Hypertension, hyperlipidemia, asthma, bipolar disorder. Past surgical history: Disc surgery 9 years prior, herniorrhaphy x3, lap band weight reduction surgery, hysterectomy. Social history: She smokes 1/2 pack of cigarettes per day times 30 years, she denies alcohol use. She denies drug use. Medical History Arthritis Surgical History H/O discectomy H/O hernia repair LAP-BAND surgery status Family History Family History Mother HTN (hypertension) CVD (cardiovascular disease) Father CVD (cardiovascular disease) Sister CVD (cardiovascular disease) Social History Social History Alcohol intake: never Patient Tobacco Use Status: Current everyday Tobacco user Cigarettes Per Day: 10 Years Smoked: 20 Use of substances other than those prescribed or required for medical reasons: No Advance Directives: No Advance Directives Information Provided: No Current occupational status: disabled Current occupation: rt handed Physical Exam Vital Signs: Vital Signs: Last Vital Signs Temp 97.5 F 11/08/21 10:12 Pulse 109 H 11/08/21 10:12 Resp 20 11/08/21 10:12 BP 143/91 H 11/08/21 10:12 Pulse Ox 95 11/08/21 10:12 O2 Del Method 11/08/21 10:12 BMI result Body Mass Index 28.0 Const: General: cooperative and no acute distress Orie ntation/consciousness: oriented to person and oriented to place Limitations: no limitations HEENT: Head: Yes normal to inspection, Yes normocephalic and Yes atraumatic Ears: external ears normal General nose exam: Normal external nose present Face and sinus: Yes normal facial exam Mouth: Normal oral and palatal mucosa present Throat: Yes posterior oropharynx normal Eyes: General: appearance normal, both eyes and all related structures Pupils: Equal, round and reactive pupils present Neck: Neck: Yes normal visual inspection, Yes no lymphadenopathy, Yes trachea midline and Yes supple Chest: Chest palpation & inspection: normal inspection of the chest and normal palpation of entire chest wall Resp: Other: Normal respiratory pattern, patient talks in full sentences, diffuse wheezing and rhonchi, no rales, breath sounds symmetric bilaterally Cardio: Rate: regular rate Rhythm: regular rhythm Heart sounds: S1 normal heart sound present, S2 normal heart sound present and no murmurs GI: Inspection: Yes normal to inspection Palpation (GI): Soft to palpation, nontender and no guarding Auscultation: normal bowel sounds : General: Yes no CVA tenderness Back/Spine/Pelvis: Back: no CVA tenderness Skin: General skin exam: no rashes or lesions noted Neuro: General: oriented to person and oriented to place Cranial nerves: Yes CN's II-XII intact bilaterally and Yes Equal, round and reactive pupils present Cognition (Neuro): normal cognition Motor exam (neuro): 5/5 motor strength present throughout Extrem: General: Yes normal to inspection Psych: Appearance: grossly normal Speech and movement: Normal speech and movement present Affect: normal affect Attitude: cooperative Thought process: Normal thought process present Thought content: Normal thought content present Course Course Course Narrative: 60-year-old female who presents emergency department for evaluation of shortness of breath, pleuritic chest pain, productive cough x2 weeks. She does have history of asthma and does smoke. The patient's vital signs revealed tachycardia with a pulse of 103 and an elevated blood pressure of 143/91. O2 saturation was 95% on room air. Lung exam did reveal diffuse wheezing and rhonchi with no rales, breath sounds are symmetric bilaterally. The patient's presentation is consistent with acute bronchitis which is triggered an asthma exacerbation. patient was given albuterol nebulizer in the emergency department. She is also given prednisone 60 mg orally. Given her thick productive cough and her smoking history, the patient will be treated with antibiotics. She was prescribed Zithromax Z-Grant. She also prescribe prednisone 60 mg once a day for 5 days. Patient was resting pain medicine for put her pain there she was given a prescription for oxycodone 5 mg, 1 pill every 4-6 hours as needed for pain. She was given printed and verbal instructions and discharged home. 1109: [place] PAT review revealed that the patient just received a prescription for oxycodone on 11/04/2021 dispense 10 tablets. Therefore, I told the patient that she should only take Tylenol for her pain and take the oxycodone that was prescribed previously. She was not given another prescription for oxycodone. Discharge Plan Discharge Clinical Impression: Bronchitis, Pleuritic chest pain Asthma Qualifiers: Asthma severity: moderate Asthma persistence: unspecified Asthma complication type: with status asthmaticus Qualified Code(s): J45.902 - Unspecified asthma with status asthmaticus Patient Disposition: Home, Self-Care Instructions: Acute Bronchitis (ED) Additional Instructions: Take prednisone 20 mg pills, 3 pills once a day for 5 days. Take Tylenol (acetaminophen) 500 mg pills, 2 pills every 4-6 hours as needed for pain. Take Zithromax (azithromycin) Z-Grant as prescribed. Day 1 take 2 pills, each day after that take 1 pill for total of 5 days. This medication states in your system for 7-10 days and continues to work despite only taking it for 5 days. Follow-up with your doctor in 2 days. Please return to the emergency department if your symptoms get worse or if you develop any symptoms that are concerning to you. Prescriptions: New azithromycin [Zithromax Z-Grant] 250 mg tablet See Rx Instructions .ROUTE .COMPLEX Qty: 6 0RF Rx Instructions: take 500 mg today (day 1), then 250 mg for 4 days (days 2-5) prednisone 20 mg tablet 60 mg PO DAILY 5 Days Qty: 15 0RF Discontinued oxycodone-acetaminophen [Percocet] 5-325 mg tablet 1 tab PO Q6H PRN (Reason: pain) Qty: 7 0RF No Action acetaminophen [Tylenol Extra Strength] 500 mg tablet 1,000 mg PO QID PRN (Reason: fever or pain) Qty: 14 0RF prednisone 20 mg tablet 40 mg PO DAILY Qty: 10 0RF cyclobenzaprine 10 mg tablet 10 mg PO TID PRN (Reason: muscle spasm) Qty: 7 0RF lidocaine [Lidoderm] 5 % adhesive patch,medicated 1 patch topical DAILY Qty: 15 0RF Rx Instructions: leave on most painful area for up to 12 hrs acetaminophen [Tylenol Extra Strength] 500 mg tablet 500 mg PO Q6H PRN (Reason: pain or fever) Qty: 20 0RF lidocaine [Lidoderm] 5 % adhesive patch,medicated 1 patch topical DAILY MDD remove after 12 hours PRN (Reason: pain) Qty: 30 0RF Rx Instructions: leave on most painful area for up to 12 hrs prednisone 20 mg tablet 40 mg PO DAILY Qty: 10 0RF oxycodone-acetaminophen [Percocet] 5-325 mg tablet 1 tab PO Q8H PRN (Reason: pain) Qty: 6 0RF cholecalciferol (vitamin D3) 1,250 mcg (50,000 unit) tablet 1,250 mcg PO QWEEK albuterol sulfate 90 mcg/actuation HFA aerosol inhaler 2 puff inhalation Q6H PRN lisinopril-hydrochlorothiazide [Zestoretic] 20-12.5 mg tablet 1 tab PO DAILY amlodipine 10 mg tablet 10 mg PO DAILY zolpidem 10 mg tablet 10 mg PO BEDTIME PRN ziprasidone HCl [Geodon] 20 mg capsule 20 mg PO BID Label Comments: 2 caps am,3 caps at bedtime Rx Instructions: give with food (meal/snack) sertraline 100 mg tablet 100 mg PO DAILY clonazepam 1 mg tablet 1 mg PO BEDTIME Rx Instructions: administer 30 minutes before bedtime tramadol 50 mg tablet 50 mg PO BID PRN (Reason: pain) Qty: 60 3RF
[2021-11-08] MEDS: predniSONE 20 MG TABLET 60 MG PO (10:59)
[2021-11-08] MEDS: Albuterol Sulfate (0.083%) 2.5 MG/3 ML VIAL.NEB INHALE (11:16)
[2021-11-08 11:18] VITALS: PULSE 70; RESP 18; O2SAT 97
== END 2021-11-08 12:00 | disposition home or self-care (01) ==
PROVIDERS: Emergency Provider Emergency Medicine Emergency Medical Services; PCP Internal Medicine
DX: J45.902 Unspecified asthma with status asthmaticus (principal); R06.02 Shortness of breath; R05.9 Cough, unspecified; R07.89 Other chest pain; Z79.899 Other long term (current) drug therapy; F17.210 Nicotine dependence, cigarettes, uncomplicated; Z71.6 Tobacco abuse counseling
CPT/HCPCS: 94640; 99284

== ENCOUNTER 2023-03-21 00:50 | Emergency (ER) | payer OTHER, SELFPAY ==
[2023-03-21 00:57] VITALS: BP 172/97; PULSE 79; RESP 20; TEMP 36.1; O2SAT 97; BMI 20.4
--- NOTE | 2023-03-21 01:35 | ED_ITS ---
HPI - General Adult General Chief complaint: General Medical Stated complaint: back pain Time Seen by Provider: 03/21/23 01:24 Source: patient Mode of arrival: ambulatory Limitations: no limitations History of Present Illness HPI narrative: Patient has a history of lumbar surgery, states she was moving boxes and injured her back. No numbness to legs, no bowel or bladder incontinence, no saddle paraesthesia Onset (ago): day(s) Radiation: back Severity: mild Related Data Home Medications Medication Instructions Recorded Confirmed albuterol sulfate 90 mcg/actuation 2 puff inhalation Q6H PRN 07/18/20 aerosol inhaler amlodipine 10 mg tablet 10 mg PO DAILY 07/18/20 cholecalciferol (vitamin D3) 1,250 1,250 mcg PO QWEEK 07/18/20 mcg (50,000 unit) tablet clonazepam 1 mg tablet 1 mg PO BEDTIME 07/18/20 lisinopril 20 1 tab PO DAILY 07/18/20 mg-hydrochlorothiazide 12.5 mg tablet (Zestoretic) sertraline 100 mg tablet 100 mg PO DAILY 07/18/20 ziprasidone HCl 20 mg capsule 20 mg PO BID 07/18/20 (Geodon) zolpidem 10 mg tablet 10 mg PO BEDTIME PRN 07/18/20 Previous Rx's Medication Instructions Recorded acetaminophen 500 mg tablet 1,000 mg (2 x 500 mg) PO QID PRN 08/17/20 (Tylenol Extra Strength) fever or pain #14 tabs tramadol 50 mg tablet 50 mg PO BID PRN pain #60 tabs 11/27/20 cyclobenzaprine 10 mg tablet 10 mg PO TID PRN muscle spasm #7 01/04/21 tabs lidocaine 5 % topical patch 1 patch topical DAILY #15 ea 01/04/21 (Lidoderm) prednisone 20 mg tablet 40 mg (2 x 20 mg) PO DAILY #10 tabs 01/04/21 oxycodone-acetaminophen 5 mg-325 1 tab PO Q8H PRN pain #6 tabs 03/14/21 mg tablet (Percocet) prednisone 20 mg tablet 40 mg (2 x 20 mg) PO DAILY #10 tabs 03/14/21 acetaminophen 500 mg tablet 500 mg PO Q6H PRN pain or fever 08/01/21 (Tylenol Extra Strength) #20 tabs lidocaine 5 % topical patch 1 patch topical DAILY PRN pain #30 08/01/21 (Lidoderm) ea azithromycin 250 mg tablet See Rx Instructions PO .COMPLEX #6 11/08/21 (Zithromax Z-Grant) tabs prednisone 20 mg tablet 60 mg (3 x 20 mg) PO DAILY 5 days 11/08/21 #15 tabs cyclobenzaprine 10 mg tablet 10 mg PO TID PRN muscle spasm #20 03/21/23 tabs tramadol 50 mg tablet 50 mg PO TID PRN pain #12 tabs 03/21/23 tramadol 50 mg tablet 50 mg PO TID PRN pain #14 tabs 03/21/23 Allergies Allergy/AdvReac Type Severity Reaction Status Date / Time aspirin [Aspirin] Allergy Severe THORAT Verified 11/08/21 10:14 SWELLING, RASH ibuprofen [From Motrin] Allergy Severe THROAT Verified 03/14/21 11:39 SWELLING, RASH naproxen Allergy Severe Anaphylaxis Verified 03/14/21 11:39 Review of Systems Review of Systems: Yes all other systems are reviewed and are negative Neurologic: Denies Sensory deficit (Neuro) [facility] Past Medical History Medical History Arthritis Osteoarthritis Vitamin D deficiency HTN (hypertension) Asthma Surgical History H/O discectomy LAP-BAND surgery status H/O hernia repair Family History Family History Mother HTN (hypertension) CVD (cardiovascular disease) Father CVD (cardiovascular disease) Sister CVD (cardiovascular disease) Social History Social History Alcohol intake: never Patient Tobacco Use Status: Current everyday Tobacco user Cigarettes Per Day: 10 Years Smoked: 20 Current occupational status: disabled Current occupation: rt handed Physical Exam ED Vital Signs: Vital Signs - 24 hr 03/21/23 00:57 Temperature 97.0 F Pulse Rate 79 Respiratory Rate 20 Blood Pressure 172/97 H Pulse Oximetry 97 Oxygen Delivery Method Room Air BMI result Body Mass Index 20.4 Const General: healthy appearing Nutritional Appearance: average body habitus Orientation/consciousness: oriented to person and patient oriented x3 Limitations: no limitations HENMT Head: Yes normal to inspection Ears: external ears normal General nose exam: Normal external nose present Mouth: Normal oral and palatal mucosa present and oropharynx normal Throat: Yes posterior oropharynx normal Eyes General: appearance normal, both eyes and all related structures Neck Neck: Yes normal visual inspection Chest Chest palpation & inspection: normal inspection of the chest Resp Auscultation: clear to auscultation bilaterally Cardio Jugular venous distension: no JVD Rate: regular rate Rhythm: regular rhythm Heart sounds: S1 normal heart sound present and S2 normal heart sound present GI Inspection: Yes normal to inspection Palpation (GI): Soft to palpation, nontender and No hepatosplenomegaly present Auscultation: normal bowel sounds General: Yes no CVA tenderness Back/Spine/Pelvis Other: paraspinal tenderness in lumbar region Back: no CVA tenderness Skin General skin exam: no rashes or lesions noted Neuro General: oriented to person and patient oriented x3 Cranial nerves: Yes CN's II-XII intact bilaterally Motor exam (neuro): 5/5 motor strength present throughout Sensory Exam: No Sensory deficit (Neuro) Extrem General: Yes normal to inspection Psych Appearance: grossly normal Course Reevaluation(s) Reevaluation #1: patient with lumbar strain will dc on flexeril and have patient follow up with her pmd Time: 02:09 Medical Decision Making Differential Diagnosis Differential Diagnoses: The differential diagnosis associated with the presentation includes (lumbar strain, lumbar radiculopathy) Tests considered The following testing was considered but not selected: MRI of lumbar spine but patient is non focal Discharge Plan Discharge Clinical Impression: Lumbar spine strain Patient Disposition: Home, Self-Care Instructions: Acute Low Back Pain (ED) Prescriptions: New tramadol 50 mg tablet 50 mg PO TID PRN (Reason: pain) Qty: 14 0RF cyclobenzaprine 10 mg tablet 10 mg PO TID PRN (Reason: muscle spasm) Qty: 20 0RF tramadol 50 mg tablet 50 mg PO TID PRN (Reason: pain) Qty: 12 0RF No Action acetaminophen [Tylenol Extra Strength] 500 mg tablet 1,000 mg PO QID PRN (Reason: fever or pain) Qty: 14 0RF prednisone 20 mg tablet 40 mg PO DAILY Qty: 10 0RF cyclobenzaprine 10 mg tablet 10 mg PO TID PRN (Reason: muscle spasm) Qty: 7 0RF lidocaine [Lidoderm] 5 % adhesive patch,medicated 1 patch topical DAILY Qty: 15 0RF Rx Instructions: leave on most painful area for up to 12 hrs acetaminophen [Tylenol Extra Strength] 500 mg tablet 500 mg PO Q6H PRN (Reason: pain or fever) Qty: 20 0RF lidocaine [Lidoderm] 5 % adhesive patch,medicated 1 patch topical DAILY MDD remove after 12 hours PRN (Reason: pain) Qty: 30 0RF Rx Instructions: leave on most painful area for up to 12 hrs prednisone 20 mg tablet 40 mg PO DAILY Qty: 10 0RF oxycodone-acetaminophen [Percocet] 5-325 mg tablet 1 tab PO Q8H PRN (Reason: pain) Qty: 6 0RF azithromycin [Zithromax Z-Grant] 250 mg tablet See Rx Instructions .ROUTE .COMPLEX Qty: 6 0RF Rx Instructions: take 500 mg today (day 1), then 250 mg for 4 days (days 2-5) prednisone 20 mg tablet 60 mg PO DAILY 5 Days Qty: 15 0RF cholecalciferol (vitamin D3) 1,250 mcg (50,000 unit) tablet 1,250 mcg PO QWEEK albuterol sulfate 90 mcg/actuation HFA aerosol inhaler 2 puff inhalation Q6H PRN lisinopril-hydrochlorothiazide [Zestoretic] 20-12.5 mg tablet 1 tab PO DAILY amlodipine 10 mg tablet 10 mg PO DAILY zolpidem 10 mg tablet 10 mg PO BEDTIME PRN ziprasidone HCl [Geodon] 20 mg capsule 20 mg PO BID Patient Comments: 2 caps am,3 caps at bedtime Rx Instructions: give with food (meal/snack) sertraline 100 mg tablet 100 mg PO DAILY clonazepam 1 mg tablet 1 mg PO BEDTIME Rx Instructions: administer 30 minutes before bedtime tramadol 50 mg tablet 50 mg PO BID PRN (Reason: pain) Qty: 60 3RF Referrals: Physician,Unknown J [Primary Care Provider] - 5 days
[2023-03-21] MEDS: Cyclobenzaprine HCl 10 MG TABLET PO (02:11)
[2023-03-21] MEDS: traMADoL HCL 50 MG TABLET PO (02:12)
--- OUTSIDE RECORDS SUMMARY | 2023-03-21 02:14 | XMS_ITS | Continuity of Care Document ---
Author Name Unknown Organization [facility] Address [address] [place] [address]- Care Team Providers Care Career Discovery Teacher Name Role Phone Elba Luna MD Primary Care Physician Encounter [facility] [place] ACCT R [id number] Date(s): 07/30/20 - 10/24/20 [facility] [address] [place] [id number] Attending Physician: Candice MISTRY, Sophie Admitting Physician: Candice MISTRY, Ashleobardo Referring Physician: Elba Luna MD Allergies, Adverse Reactions, Alerts Substance Reaction Severity Status ibuprofen throat closes Active aspirin throat closes Active nonsteroidal antiinflammatory agent Active Immunizations Given and Recorded Vaccine Date Status Refusal Reason influenza virus vaccine, inactivated 1 01/21/15 Re corded pneumococcal 23-valent vaccine 02/03/11 Given tetanus/diphtheria/pertussis, acel(Tdap) 2 05/14/10 Given 1Location History: Pharmacy 2Admin Note: VIS 03/30 Medications albuterol 0.083% inhalation solution 3 mL = 2.5 mg, Inhalation, Every 6 hours, PRN for wheezing, # 25 each, 0 Refills, Maintenance, 12/12/18 14:03:23 EDT, Solution Start Date: 12/12/18 Status: Ordered amLODIPine 10 mg oral tablet 10 mg, 1, tablet, By Mouth, Daily, # 30 tablet, Refills 3, Tot. Refills 3, Maintenance, 06/08/17 18:22:37, Route to Pharmacy Electronically, [id number], [facility] [id number] Start Date: 06/08/17 Status: Ordered clonazePAM 1 mg oral tablet 1 tablet = 1 mg, By Mouth, 2 times a day, 0 Refills, Maintenance, 03/19/16 16:39:41, Tablet Start Date: 03/19/16 Status: Ordered cyclobenzaprine 10 mg oral tablet 10 mg, 1, tablet, By Mouth, Daily, PRN, # 30 tablet, Refills 0, Maintenance, for spasm, 12/12/18 14:03:49 EDT Start Date: 12/12/18 Status: Ordered Flovent HFA 110 mcg/inh inhalation aerosol 1 puffs, Inhalation, 2 times a day, # 1 each, 0 Refills, Maintenance, 08/26/15 14:50:30 Start Date: 08/26/15 Stop Date: 09/25/15 Status: Ordered Geodon 40 mg oral capsule 1 capsule = 40 mg, By Mouth, Daily, AM, 0 Refills, Maintenance, 02/26/16 12:24:43 Start Date: 02/26/16 Status: Ordered Geodon 60 mg oral capsule 1 capsule = 60 mg, By Mouth, Daily at bedtime, 0 Refills, Maintenance, 02/26/16 12:24:51 Start Date: 02/26/16 Status: Ordered hydrochlorothiazide-lisinopril 12.5 mg-20 mg oral tablet 1 tablet, By Mouth, Daily, # 30 tablet, 0 Refills, Maintenance, 12/12/18 14:04:51 EDT, Tablet Start Date: 12/12/18 Stop Date: 01/11/19 Status: Ordered ProAir HFA 90 mcg/inh inhalation aerosol with adapter 2, puffs, Inhalation, Every 6 hours, PRN, # 1 each, Refills 0, Maintenance, 12/12/18 14:03:00 EDT, Aerosol Start Date: 12/12/18 Stop Date: 01/11/19 Status: Ordered Tylenol 8 HR Arthritis Pain 650 mg oral tablet, extended release 2 tablet = 1,300 mg, By Mouth, Every 8 hours, for 30 days, # 180 tablet, 0 Refills, Acute 11/07/15 12:24:21, 10/08/15 12:24:21 Start Date: 10/08/15 Stop Date: 11/07/15 Status: Ordered zolpidem 10 mg oral tablet 1 tablet = 10 mg, By Mouth, Daily at bedtime, PRN for sleep, 0 Refills, Maintenance, 03/19/16 16:40:14, Tablet Start Date: 03/19/16 Status: Ordered Problem List Condition Effective Dates Status Health Status Inform ant Bipolar disorder(Confirmed) Active Chronic low back pain(Confirmed) Active COPD (chronic obstructive pu lmonary disease)(Confirmed) Active Hypertension(Confirmed) Active Obesity(Confirmed) Active Tobacco dependence(Confirmed) Active Total abdominal hysterectomy(Confirmed) Active Social History Social History Type Response Smoking Status Current every day arlene finn; Tobacco user in household: No; Type: Cigarettes; Other: Smokes 1 pack every 2 days; entered on: 02/26/16 Sex
--- OUTSIDE RECORDS SUMMARY | 2023-03-21 02:14 | XMS_ITS | Continuity of Care Document ---
Author Name Unknown Organization [facility] Address [address] [place] [id number] Care Team Providers Care Fast Food Supervisor Name Role Phone Cheryl MISTRY, Elba Carlos Primary Care Physician Encounter [facility] [place] Date(s): 09/26/20 - 10/26/20 [facility] [address] [place] [id number] Attending Physician: Loyda Hanna Admitting Physician: AdmtrLoyda Referring Physician: Admtr, Ar8 Allergies, Adverse Reactions, Alerts Substance Reaction Severity [...] Maintenance, 06/08/17 18:22:37, Route to Pharmacy Electronically, [id number], [facility] [id number] Start Date: 06/08/17 Status: Ordered clonazePAM 1 [...] Type Response Smoking Status Current every day sm aakash; Tobacco user in household: No; Type: Cigarettes; Other: Smokes 1 pack every 2 days; entered on: 02/26/16 Sex
--- OUTSIDE RECORDS SUMMARY | 2023-03-21 02:14 | XMS_ITS | Continuity of Care Document ---
Author Name Unknown Organization [facility] Address [address] [place] [address]- Care Team Providers Care Building Guard Deputy Sheriff Name Role Phone Elba Luna MD Primary Care Physician [facility] [facility] [place]s): 08/25/20 - 10/26/20 [facility] [address] [place] [id number] Attending Physician: Sophie Harvey MD Admitting Physician: Candice MISTRY, Sophie Referring Physician: Elba Luna MD Allergies, Adverse [...] Maintenance, 06/08/17 18:22:37, Route to Pharmacy Electronically, [id number][id number] Start Date: 06/08/17 Status: Ordered clonazePAM 1 [...]
--- OUTSIDE RECORDS SUMMARY | 2023-03-21 02:14 | XMS_ITS | Continuity of Care Document ---
Author Name Unknown Organization [facility] Address [address] [place] [address]- Care Team Providers Care Residential Mental Health Worker Name Role Phone Cheryl MISTRY, Elba Carlos Primary Care Physician Encounter [facility] [place] Date(s): 09/03/22 - 10/03/22 [facility] [address] [place] [id number] [place] Allergies, Adverse Reactions, Alerts Substance Reaction Severity [...] Maintenance, 06/08/17 18:22:37, Route to Pharmacy Electronically, [id number], [facility] [id number] Start Date: 06/08/17 Status: Ordered clonazePAM 1 [...] Date: 03/19/16 Status: Ordered Problem List Condition Confirmation Course Effective Dates Status Health St atus Informant Bipolar disorder Confirmed Active Chronic low back pain Confirmed Active COPD (chronic obstructive pulmonary disease) Confirmed Active Hypertension Confirmed Active Obesity Confirmed Active Tobacco dependence Confirmed Active Total abdominal hysterectomy Confirmed Active Social History Social History Type Response Smoking Status Current every day sm oker; Tobacco user in household: No; Type: Cigarettes; Other: Smokes 1 pack every 2 days; entered on: 02/26/16 Sex Patient Care team information Care Team Personnel Name: Elba Luna MD Position: [facility] Outreach Member Role: PCP Address: Address: [address] [place] [address] Name: Laura Resendez Position: [facility] Outreach Member Role: Lifetime Consulting Physician Care Team Related Persons Name: MARISELA DONATO Address: [address] [place] [address] Name: LESLEY DENT Address: home [address] [address] Name: CANDACE DENT Address: [address] [place] [address]
--- OUTSIDE RECORDS SUMMARY | 2023-03-21 02:14 | XMS_ITS | Continuity of Care Document ---
Author Name Unknown Organization [facility] Address [address] [place] [address]- Care Team Providers Care Cut Off Operator Scorer Name Role Phone Elba Luna MD Primary Care Physician Encounter [facility] [place] Date(s): 07/01/20 - 08/31/20 [facility] [address] [place] [id number] Attending Physician: Candice MISTRY, Sophie Admitting Physician: [...] Maintenance, 06/08/17 18:22:37, Route to Pharmacy Electronically, [id number], [facility] [id number] Start Date: 06/08/17 Status: Ordered clonazePAM 1 [...]
--- OUTSIDE RECORDS SUMMARY | 2023-03-21 02:14 | XMS_ITS | Continuity of Care Document ---
Author Name Unknown Organization [facility] Address [address] [place] [address]- Care Team Providers Care Hardboard Factory Worker Name Role Phone Blas Torres MD Primary Care Physician [place] [facility] [place]19[place] - 03/20/[address] [address]- [facility] Allergies, Adverse Reactions, Alerts Substance Reaction Severity [...] Maintenance, 06/08/17 18:22:37, Route to Pharmacy Electronically, [id number], [facility] [id number] Start Date: 06/08/17 Status: Ordered clonazePAM 1 [...]
[2023-03-21 02:15] VITALS: BP 159/76; PULSE 73; RESP 16; TEMP 36.7; O2SAT 98
== END 2023-03-21 02:21 | disposition home or self-care (01) ==
PROVIDERS: Emergency Provider Emergency Medicine
DX: S39.012A Strain of muscle, fascia and tendon of lower back, initial encounter (principal); X58.XXXA Exposure to other specified factors, initial encounter; Y93.9 Activity, unspecified; Y92.9 Unspecified place or not applicable; Y99.9 Unspecified external cause status
CPT/HCPCS: 99283; 99284